=== PATIENT | female | born 1965 | race Caucasian/White ===

== ENCOUNTER → 2021-10-06 | Outpatient (CLI) | payer BC | LOC: HYPER 08:55 | PROVIDERS: ATTEND Emergency Medicine Emergency Medical Services | DX: S61.552A Open bite of left wrist, initial encounter (principal); S61.452A Open bite of left hand, initial encounter; S62.347A Nondisplaced fracture of base of fifth metacarpal bone, left hand, initial encounter for closed fracture; M25.532 Pain in left wrist; G43.909 Migraine, unspecified, not intractable, without status migrainosus; Z79.899 Other long term (current) drug therapy; Z98.890 Other specified postprocedural states; W54.0XXA Bitten by dog, initial encounter; Y93.89 Activity, other specified; Y92.89 Other specified places as the place of occurrence of the external cause; Y99.8 Other external cause status ==

== ENCOUNTER → 2021-10-16 | Outpatient (CLI) | payer BC | LOC: HYPER 05:19 | PROVIDERS: ATTEND Emergency Medicine Emergency Medical Services | DX: S61.552D Open bite of left wrist, subsequent encounter (principal); S61.452D Open bite of left hand, subsequent encounter; S62.347D Nondisplaced fracture of base of fifth metacarpal bone, left hand, subsequent encounter for fracture with routine healing; M25.532 Pain in left wrist; G43.909 Migraine, unspecified, not intractable, without status migrainosus; Z79.899 Other long term (current) drug therapy; W54.0XXD Bitten by dog, subsequent encounter ==